=== PATIENT | female | born 1960 | race Caucasian/White ===

== ENCOUNTER → 2016-08-06 | Outpatient (CLI) | payer BC ==
--- NOTE | 2016-08-09 07:34 | MM ---
Reason for exam: screening (asymptomatic). Last mammogram was performed 4 years and 8 months ago. History: Patient is postmenopausal. Took hormonal contraceptives beginning at age 18. Taking estrogen for 1 year beginning at age 50. Taking progesterone for 1 year beginning at age 50. Physical Findings: A clinical breast exam by your physician is recommended on an annual basis and results should be correlated with mammographic findings. MG 3D Screening Mammo W/Cad Bilateral CC and MLO view(s) were taken. Prior study comparison: December 09, 2011, CAD bilateral diagnostic mammogram. December 23, 2006, workup right diagnostic mammogram. December 14, 2006, bilateral screening mammogram w/CAD. The breast tissue is heterogeneously dense. This may lower the sensitivity of mammography. Finding: There are typically benign round, regional calcifications in both breasts. There is no discrete abnormality. Prominent bilateral axillary lymph nodes redemonstrated. ASSESSMENT: Benign, BI-RAD 2 RECOMMENDATION: Routine screening mammogram of both breasts in 1 year.
== END ==
LOC: RADMAMWWP 07:48
PROVIDERS: ATTEND Family Medicine
DX: Z12.31 Encounter for screening mammogram for malignant neoplasm of breast (principal)
CPT/HCPCS: 77052; 77063; G0202

== ENCOUNTER → 2018-03-06 | Outpatient (CLI) | payer OTHER ==
--- NOTE | 2018-03-06 18:38 | BD ---
EXAMINATION TYPE: Axial Bone Density DATE OF EXAM: 03/06/2018 COMPARISON: NONE CLINICAL HISTORY: 57-year-old female postmenopausal symptoms Height: 61.7 IN Weight: 156 LBS FRAX RISK QUESTIONS: History of Fracture in Adulthood: YES RT WRIST RISK FACTORS HISTORY OF: History of Wrist Fracture: YES RT WRIST When: AGE 54 Active: YES Diet low in dairy products/other sources of calcium: YES Postmenopausal woman: AGE 49 Take estrogen and/or progesterone medications: NOT NOW How long: TOOK CONTROL FOR 28 YEARS MEDICATIONS: Thyroid Medications: YES Which medication: Levothyroxine How Lon YEARS Additional Medications: VIT D, LEVOTHYROXINE, AMLODIPINE, METOPROLOL, PRISTIQ, OMEPRAZOLE, ASTHMANEX INHALER, CLARITIN, SINGULAIR, EXAM MEASUREMENTS: Bone mineral densitometry was performed using the [employer]. Bone mineral density as measured about the Lumbar spine is: ----- L1-L4(G/cm2): 0.861 T Score Values are as follows: ----- L2: -3.6 ----- L3: -2.9 ----- L4: -1.6 ----- L1-L4: -2.7 Bone mineral density BASELINE Bone mineral density about the R hip (g/cm2): 0.900 Bone mineral density about the L hip (g/cm2): 0.932 T Score values are as follows: -----R Neck: -1.0 -----L Neck: -0.8 -----R Total: -0.7 -----L Total: -0.2 Bone mineral density BASELINE IMPRESSION: Osteoporosis (T Score less than -2.5). There is increased fracture risk and therapy is usually indicated based on age. Re-Screen 1-2 years. NOTE: T-SCORE=SD OF THE YOUNG ADULT MEAN.
--- NOTE | 2018-03-08 10:55 | MM ---
Reason for exam: screening (asymptomatic). Last mammogram was performed 1 year and 7 months ago. History: Patient is postmenopausal. Took hormonal contraceptives beginning at age 18. Taking estrogen for 1 year beginning at age 50. Taking progesterone for 1 year beginning at age 50. Physical Findings: A clinical breast exam by your physician is recommended on an annual basis and results should be correlated with mammographic findings. MG 3D Screening Mammo W/Cad Bilateral CC and MLO view(s) were taken. Prior study comparison: August 06, 2016, bilateral MG 3d screening mammo w/cad. December 09, 2011, CAD bilateral diagnostic mammogram. The breast tissue is heterogeneously dense. This may lower the sensitivity of mammography. Finding: There are intermediate concern, suspicious round, grouped/clustered calcifications in the 9 o'clock upper outer quadrant, middle position of the left breast 6cm from the nipple. New finding since August 06, 2016 and December 09, 2011. ASSESSMENT: Incomplete: need additional imaging evaluation, BI-RAD 0 RECOMMENDATION: Special view mammogram of the left breast. [facility] will attempt to contact patient to return for supplemental views.
== END | disposition home or self-care (01) ==
LOC: RADMAMWWP 07:33
PROVIDERS: ATTEND Obstetrics & Gynecology
DX: Z12.31 Encounter for screening mammogram for malignant neoplasm of breast (principal); M81.0 Age-related osteoporosis without current pathological fracture; N95.1 Menopausal and female climacteric states
CPT/HCPCS: 77063; 77067; 77080

== ENCOUNTER → 2018-03-27 | Outpatient (CLI) | payer OTHER ==
--- NOTE | 2018-03-27 11:26 | MM ---
Reason for exam: additional evaluation requested from prior study. Last mammogram was performed 1 month ago. History: Patient is postmenopausal. Took hormonal contraceptives beginning at age 18. Took estrogen for 10 years beginning at age 50. Took progesterone for 10 years beginning at age 50. Physical Findings: Nurse did not find any significant physical abnormalities on exam. MG 3D Work Up W/Cad LT CC with magnification, MLO with magnification, and LM view(s) were taken of the left breast. Technologist: Bernice Doll RT (R)(M) Prior study comparison: March 06, 2018, bilateral MG 3d screening mammo w/cad. August 06, 2016, bilateral MG 3d screening mammo w/cad. The breast tissue is heterogeneously dense. This may lower the sensitivity of mammography. There are indeterminate calcifications central upper left breast. These results were verbally communicated with the patient and result sheet given to the patient on 03/27/18. ASSESSMENT: Suspicious, BI-RAD 4 RECOMMENDATION: Stereotactic core biopsy of the left breast. Called Dr. Hinds with mammographic findings and has scheduled an appointment for the patient for 04/07/18 at 12:[address] Phelan. Biopsy scheduled for 04/14/18 at 8 o'clock. PRELIMINARY REPORT CALLED AND FAXED TO DR. PHELAN ON 03/27/18.
== END | disposition home or self-care (01) ==
LOC: RADMAMWWP 06:53
PROVIDERS: ATTEND Obstetrics & Gynecology
DX: R92.8 Other abnormal and inconclusive findings on diagnostic imaging of breast (principal)
CPT/HCPCS: 77061; 77065

== ENCOUNTER → 2018-04-14 | Day surgery (SDC) | payer OTHER ==
[2018-04-14 07:23] VITALS: RESP 16; BMI 28.9
[2018-04-14 09:15] VITALS: BP 144/84; PULSE 75; TEMP 98
--- NOTE | 2018-04-14 19:42 | MM ---
EXAMINATION TYPE: MG stereo VAD BX LT DATE OF EXAM: 04/14/2018 COMPARISON: NONE CLINICAL HISTORY: Abnormal mammogram TECHNIQUE: Stereotactic guided core biopsy of left breast. FINDINGS: The procedure of stereotactic guided core biopsy was explained to the patient. Benefits, a lternatives, and risks were discussed. An informed consent was then obtained. A timeout was performed. The [facility] pathway for biopsy was chosen. Shortness pathway was lateral approach. Radiology perfo rmed the localization. Dr. Mohamud performed the procedure. Multiple core samples were obtained. Sample: Sample was evaluated. Multiple calcifications are within sample. Samples labeled and transfer red to pathology for additional evaluation. Postprocedure mammogram: Post biopsy mammogram shows the clip to appear in satisfactory position rela tive to the targeted area of concern on the preprocedure images. The patient tolerated the procedure well without any immediate complication. Discharge instructions were discussed with the patient. Patient will follow-up with her physician for results. The patient w as kept in the radiology department for short stay after the procedure and then discharged home in st able condition. IMPRESSION: 1. Successful stereotactic core biopsy left breast calcifications. Recommendations: 1. Recommendations are pending pathology results.
== END | disposition home or self-care (01) ==
LOC: RADMAMWWP 06:51
PROVIDERS: ATTEND Surgery
DX: N60.92 Unspecified benign mammary dysplasia of left breast (principal)
CPT/HCPCS: 88305; 88342; 19081; A4648; J2001

== ENCOUNTER → 2018-11-09 | Outpatient (CLI) | payer OTHER ==
--- NOTE | 2018-11-09 08:51 | MM ---
Reason for exam: follow-up at short interval from prior study. Last mammogram was performed 7 months ago. History: Patient is postmenopausal. Benign MG stereo VAD BX LT of the left breast, April 14, 2018. Took hormonal contraceptives beginning at age 18. Took estrogen for 10 years beginning at age 50. Took progesterone for 10 years beginning at age 50. Physical Findings: Nurse did not find any significant physical abnormalities on exam. MG 3D Diag Mammo W/Cad LT CC, MLO, LM, and XCCL view(s) were taken of the left breast. Prior study comparison: March 27, 2018, left breast MG 3d work up w/cad LT. March 06, 2018, bilateral MG 3d screening mammo w/cad. The breast tissue is heterogeneously dense. This may lower the sensitivity of mammography. Benign calcifications in the left breast. Previous mammotome biopsy in the left breast. These results were verbally communicated with the patient and result sheet given to the patient on 11/09/18. ASSESSMENT: Benign, BI-RAD 2 RECOMMENDATION: Return to routine screening mammogram schedule for both breasts. Back on schedule.
== END | disposition home or self-care (01) ==
LOC: RADMAMWWP 06:46
PROVIDERS: ATTEND Obstetrics & Gynecology
DX: R92.8 Other abnormal and inconclusive findings on diagnostic imaging of breast (principal)
CPT/HCPCS: 77061; 77065

== ENCOUNTER → 2019-06-22 | Outpatient (CLI) | payer OTHER ==
--- NOTE | 2019-06-26 08:32 | MM ---
Reason for exam: screening (asymptomatic). Last mammogram was performed 7 months ago. History: Patient is postmenopausal. Benign MG stereo VAD BX LT of the left breast, April 14, 2018. Took hormonal contraceptives beginning at age 18. Took estrogen for 10 years beginning at age 50. Took progesterone for 10 years beginning at age 50. Physical Findings: A clinical breast exam by your physician is recommended on an annual basis and results should be correlated with mammographic findings. MG 3D Screening Mammo W/Cad Bilateral CC and MLO view(s) were taken. XCCL view(s) were taken of the left breast. Prior study comparison: November 09, 2018, left breast MG 3d diag mammo w/cad LT. March 27, 2018, left breast MG 3d work up w/cad LT. The breast tissue is heterogeneously dense. This may lower the sensitivity of mammography. No significant changes when compared with prior studies. ASSESSMENT: Benign, BI-RAD 2 RECOMMENDATION: Routine screening mammogram of both breasts in 1 year.
== END | disposition home or self-care (01) ==
LOC: RADMAMWWP 07:10
PROVIDERS: ATTEND Obstetrics & Gynecology
DX: Z12.31 Encounter for screening mammogram for malignant neoplasm of breast (principal)
CPT/HCPCS: 77063; 77067

== ENCOUNTER → 2020-07-01 | Outpatient (CLI) | payer OTHER | END | disposition home or self-care (01) | LOC: LABPAT 07:34 | PROVIDERS: ATTEND Surgery | DX: U07.1 COVID-19 (principal) | CPT/HCPCS: U0003; C9803 ==

== ENCOUNTER 2020-07-08 12:06 | Day surgery (SDC) | payer OTHER ==
[2020-07-04 09:22] VITALS: BMI 28.5
[~2020-07-08 12:06] MED LIST: DEXAMETHASONE SOD PHOSPHATE 4 MG/ML 1 ML VIAL IV ONE; HEPARIN SODIUM,PORCINE 5,000 UNIT/ML 1 ML VIAL SQ PRN; LACTATED RINGERS 1,000 ML IV SCH; LIDOCAINE 1% (10MG/ML) FOR IV START INTRADERMA PRN; ONDANSETRON 4 MG/2 ML VIAL IVP ONE; SCOPOLAMINE 1.5MG/72HR PATCH TRANSDERM ONE
[2020-07-08] MEDS ORDERED: MIDAZOLAM 2 MG/2 ML VIAL IV ONE (13:03)
[2020-07-08] MEDS ORDERED: GLYCOPYRROLATE 0.2 MG/ML 2 ML VIAL ONE (13:42)
[2020-07-08] MEDS ORDERED: ALBUTEROL HFA INHALER INHALATION ONE (13:42)
[2020-07-08] MEDS ORDERED: METOPROLOL TARTRATE 5 MG/5 ML VIAL IVP ONE (13:42)
[2020-07-08] MEDS ORDERED: ROCURONIUM 10 MG/ML (10 ML VIAL) IV ONE (13:42)
[2020-07-08] MEDS ORDERED: fentaNYL (PF) 50 MCG/ML 2 ML AMP ONE (13:42)
[2020-07-08] MEDS ORDERED: SUCCINYLCHOLINE CHLORIDE 100 MG/5 ML SYR IV ONE (13:42)
[2020-07-08] MEDS ORDERED: PROPOFOL 10 MG/ML 20 ML VIAL IV ONE (13:42)
[2020-07-08] MEDS ORDERED: ROPIVACAINE 5 MG/ML 30 ML VIAL ONE (13:42)
[2020-07-08] MEDS ORDERED: DEXAMETHASONE SOD PHOSPHATE 4 MG/ML 1 ML VIAL ONE (13:42)
[2020-07-08] MEDS ORDERED: NEOSTIGMINE 1 MG/ML 10 ML VIAL ONE (13:42)
[2020-07-08] MEDS ORDERED: KETOROLAC 15 MG/ML 1 ML VIAL ONE (13:42)
[2020-07-08] MEDS ORDERED: MIDAZOLAM 2 MG/2 ML VIAL ONE (13:42)
[2020-07-08] MEDS ORDERED: BUPIVACAINE (PF) 0.25% 30 ML VIAL SQ ONE ×3 (13:50→14:54)
--- NOTE | 2020-07-08 14:46 | P.ANPRN ---
Procedure Note - Anesthesia - Nerve Block Performed Bilateral Rectus Abdominis Single Time Out Performed: Yes Date of Procedure: 07/08/20 Procedure Start Time: 13:02 Procedure Stop Time: 13:07 Location of Patient: PreOp Indication: Acute Post-Operative Pain, Requested by Surgeon Sedation Type: Sedate with meaningful contact maintained Preparation: Sterile Prep Position: Supine Needle Types: Pajunk Needle Gauge: 21 Ultrasound used to visualize needle placement: Yes Ultrasound used to observe medication spread: Yes Blood Aspirated: No Pain Paresthesia on Injection Noted: No Resistance on Injection: Normal Image Stored and Saved: Yes Events: Uneventful and Well Tolerated (ropi .5% 20cc plus dexamethasone 4mg bilaterally)
[2020-07-08] MEDS ORDERED: LACTATED RINGERS 1,000 ML IV ONE ×2 (14:50)
--- NOTE | 2020-07-08 15:06 | P.OP ---
Date of Procedure: 07/08/20 Preoperative Diagnosis: Umbilical hernia Postoperative Diagnosis: Umbilical hernia Procedure(s) Performed: Robotic repair of umbilical hernia, with mesh Anesthesia: KATERYNA Surgeon: Luly Osman Pathology: none sent Condition: stable Disposition: same day Indications for Procedure: 59-year-old female presents today for surgical repair of umbilical hernia. The umbilical hernia has been causing the patient some painful symptoms. She is excellent the risks, benefits and alternatives to the procedure did provide consent prior to attending the operating suite. Operative Findings: Umbilical hernia containing omental and preperitoneal fatty tissue Description of Procedure: The patient was brought to the operating suite and placed in supine position. Gen. anesthesia with endotracheal intubation was performed as per anesthesia team. The right arm was tucked against the body and footboard was applied. Chlorhexidine was used to prep the skin followed by application of sterile drapes. A timeout was performed to verify an additional 8 mm trocar was placed in the left lower abdomen and a 12 mm trocar was placed in the left mid abdomen. The initial 5 mm trocar was upsized to an 8 mm trocar. The da Robby robot was undocked. The 30 robotic camera was used. A robotic progressive and monopolar scissors were inserted through the 8 mm robotic trochars. The hernia defect contained preperitoneal fat and omentum which were reduced using gentle traction and countertraction method along with some cautery. The falciform ligament was divided using monopolar scissors close to the anterior abdominal wall to create a landing zone for the mesh. A Viadeo Echo system circular mesh was rolled and introduced the abdominal cavity via the 12 mm trocar. The hernia defect was closed primarily with running sutures using 0V lock by taking 17 m by Don the fascia on either side of the defect. A Benitez Wright device was inserted through the middle of the hernia defect and the stay suture on the mesh was grasped to elevate the mesh against the anterior abdominal wall. The mesh was circumferentially sutured to the peritoneum of the anterior abdominal wall using 20V lock without any folds or kinks. The robot was then undocked. Laparoscopic 30 camera was inserted. All trocar sites were examined. No evidence of bleeding was noted. The 12 mm trocar site was closed using 2 transverse fascial sutures of 0 Vicryl which were placed using a Benitez Wright device under direct visualization. The pneumoperitoneum was evacuated and the skin incisions were closed using 4-0 Monocryl followed by Dermabond skin glue. The sponge, instrument and needle count were correct 2. Abdominal binder was applied. The patient was excellent and taken to postanesthesia care unit in stable condition.
[2020-07-08 15:26] VITALS: TEMP 97.9
[2020-07-08] MEDS: HYDROmorphone 0.5 MG/0.5 ML SYRINGE IVP PRN ×2 (15:27→15:51)
[2020-07-08 16:09] VITALS: RESP 16
[2020-07-08 17:19] VITALS: BP 161/77; PULSE 77
[2020-07-08] MEDS ORDERED: IBUPROFEN 200 MG TAB PO ONE (17:19)
== END 2020-07-08 17:50 | disposition home or self-care (01) ==
LOC: OR 12:06
PROVIDERS: ATTEND Surgery
DX: K42.9 Umbilical hernia without obstruction or gangrene (principal); J45.909 Unspecified asthma, uncomplicated; F32.9 Major depressive disorder, single episode, unspecified; I10 Essential (primary) hypertension; G43.909 Migraine, unspecified, not intractable, without status migrainosus; E03.9 Hypothyroidism, unspecified; K44.9 Diaphragmatic hernia without obstruction or gangrene; K08.89 Other specified disorders of teeth and supporting structures; K21.9 Gastro-esophageal reflux disease without esophagitis; Z98.51 Tubal ligation status; Z98.41 Cataract extraction status, right eye; Z98.42 Cataract extraction status, left eye; Z79.899 Other long term (current) drug therapy; Z79.890 Hormone replacement therapy; Z79.51 Long term (current) use of inhaled steroids; Z79.82 Long term (current) use of aspirin; Z80.6 Family history of leukemia; Z82.49 Family history of ischemic heart disease and other diseases of the circulatory system; Z83.3 Family history of diabetes mellitus; Z82.0 Family history of epilepsy and other diseases of the nervous system
CPT/HCPCS: 49652; S2900; 64488

== ENCOUNTER → 2020-07-30 | Outpatient (CLI) | payer OTHER ==
--- NOTE | 2020-07-30 13:59 | US ---
EXAMINATION TYPE: US venous doppler duplex LE RT DATE OF EXAM: 07/30/2020 12:18 PM COMPARISON: NONE CLINICAL HISTORY: 59-year-old female M79.89 Rt lower ext swelling, Z48.89 Surgical aftercare. Abdomin al hernia repair 3 weeks ago, pain and edema right leg since surgery SIDE PERFORMED: right TECHNIQUE: The lower extremity deep venous system is examined utilizing real time linear array sonog dirk with graded compression, doppler sonography and color-flow sonography. FINDINGS: VESSELS IMAGED: Common Femoral Vein Deep Femoral Vein Greater Saphenous Vein * Femoral Vein Popliteal Vein Small Saphenous Vein * Proximal Calf Veins (* superficial vessels) Right Leg: no evidence of DVT IMPRESSION: No evidence for DVT within the right lower extremity imaged from the groin to the upper calf.
== END | disposition home or self-care (01) ==
LOC: RADUSWWP 11:54
PROVIDERS: ATTEND Surgery
DX: M79.89 Other specified soft tissue disorders (principal); Z48.89 Encounter for other specified surgical aftercare

== ENCOUNTER → 2020-12-08 | Outpatient (CLI) | payer OTHER ==
--- NOTE | 2020-12-09 08:00 | BD ---
EXAMINATION TYPE: Axial Bone Density DATE OF EXAM: 12/08/2020 COMPARISON: 03/16/2018 CLINICAL HISTORY: Height: 61 IN Weight: 151 LBS FRAX RISK QUESTIONS: History of Fracture in Adulthood: RT WRIST AGE 54 Secondary Osteoporosis: 3. Menopause before 45: AGE 48 RISK FACTORS HISTORY OF: History of Wrist Fracture: RT WRIST AGE 54 Family History of Osteoporosis: YES FATHER Active: YES Postmenopausal woman: AGE 54 Take estrogen and/or progesterone medications: NOT NOW How long: TOOK CONTROL OFF AND ON 23 YEARS. TOOK PREMARIN FOR 7 YEARS MEDICATIONS: Thyroid Medications: YES Which medication: Levothyroxine How Lon YEARS Additional Medications: VIT D, LEVOTHYROXINE, METOPROLOL, AMLODIPINE, SINGULAIR, 81 MG ASPIRIN, ASTHM ANEX INHALER, MYBETRIQUE, (BLADDER SPASMS), PRESTIQ,PROTONIX, FLONASE EXAM MEASUREMENTS: Bone mineral densitometry was performed using the [employer] System. Bone mineral density as measured about the Lumbar spine is: ----- L1-L4(G/cm2): 0.927 T Score Values are as follows: ----- L2: -3.6 ----- L3: -2.1 ----- L4: -0.9 ----- L1-L4: -2.1 Bone mineral density has: Increased 6.9% since study of: 03/06/2018 Bone mineral density about the R hip (g/cm2): 0.853 Bone mineral density about the L hip (g/cm2): 0.895 T Score values are as follows: -----R Neck: -1.3 -----L Neck: -1.0 -----R Total: -0.9 -----L Total: -0.4 Bone mineral density has: Decreased -2.6% since study of: 03/06/2018 IMPRESSION: Osteopenia (T Score between -2.5 and -1). There is slightly increased risk of fracture and the patient may be considered for treatment. Re-Screen 2-5 years. NOTE: T-SCORE=SD OF THE YOUNG ADULT MEAN.
--- NOTE | 2020-12-10 12:33 | MM ---
Reason for exam: screening (asymptomatic). Last mammogram was performed 1 year and 6 months ago. History: Patient is postmenopausal. Benign MG stereo VAD BX LT of the left breast, April 14, 2018. Took hormonal contraceptives beginning at age 18. Took estrogen for 10 years beginning at age 50. Took progesterone for 10 years beginning at age 50. Physical Findings: A clinical breast exam by your physician is recommended on an annual basis and results should be correlated with mammographic findings. MG 3D Screening Mammo W/Cad Bilateral CC and MLO view(s) were taken. Prior study comparison: June 22, 2019, bilateral MG 3d screening mammo w/cad. November 09, 2018, left breast MG 3d diag mammo w/cad LT. The breast tissue is heterogeneously dense. This may lower the sensitivity of mammography. Previous mammotome biopsy in the left breast. No significant changes when compared with prior studies. ASSESSMENT: Benign, BI-RAD 2 RECOMMENDATION: Routine screening mammogram of both breasts in 1 year.
== END | disposition home or self-care (01) ==
LOC: RADBDWWP 15:32
PROVIDERS: ATTEND Obstetrics & Gynecology
DX: Z12.31 Encounter for screening mammogram for malignant neoplasm of breast (principal); M81.0 Age-related osteoporosis without current pathological fracture; M85.89 Other specified disorders of bone density and structure, multiple sites; Z78.0 Asymptomatic menopausal state
CPT/HCPCS: 77063; 77067; 77080

== ENCOUNTER → 2022-04-06 | Outpatient (CLI) | payer OTHER ==
--- NOTE | 2022-04-07 13:54 | MM ---
Reason for Exam: Screening (asymptomatic). Last mammogram was performed 1 year(s) and 4 month(s) ago. Patient History: Menarche at age 12. First Full-Term at age 24. Postmenopausal. Estrogen, starting at age 50 for 10 years. Progesterone, starting at age 50 for 10 years. Hormonal Contraceptives, from age 18 until age 46. 04/14/2018, Benign Core Biopsy on the left side. Risk Values: Edna 5 year model risk: 1.9%. NCI Lifetime model risk: 8.0%. Prior Study Comparison: 11/09/2018 Left Diagnostic Mammogram, [facility]. 06/22/2019 Bilateral Screening Mammogram, [facility]. 12/08/2020 Bilateral Screening Mammogram, [facility]. Tissue Density: The breast tissue is heterogeneously dense. This may lower the sensitivity of mammography. Findings: Analyzed By CAD. No significant changes when compared with prior studies. Stable benign calcifications. No discrete abnormality. Overall Assessment: Benign, BI-RAD 2 Management: Screening Mammogram of both breasts in 1 year. A clinical breast exam by your physician is recommended on an annual basis and results should be correlated with mammographic findings. Electronically signed and approved by: Jose M Read M.D. Radiologis
== END | disposition home or self-care (01) ==
LOC: RADMAMWWP 07:20
PROVIDERS: ATTEND Obstetrics & Gynecology
DX: Z12.31 Encounter for screening mammogram for malignant neoplasm of breast (principal); Z78.0 Asymptomatic menopausal state; Z98.890 Other specified postprocedural states
CPT/HCPCS: 77063; 77067

== ENCOUNTER → 2023-07-30 | Outpatient (CLI) | payer OTHER ==
--- NOTE | 2023-07-31 17:31 | MR ---
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 COMPARISON: None. TECHNIQUE: Multi planar, multi sequence imaging was performed through the orbits/face. Post contrast imaging was performed after the administration of 6.5 cc of Gadavist intravenously. FINDINGS, ORBITS: The globes appear symmetrical. Signal intensity of the globes and optic nerves ar e within normal limits. The intraorbital fat appears preserved. Both lacrimal glands are unremarkab le. The extraocular muscles appear symmetric. After administration of contrast, no abnormal enhanceme nt is seen. FINDINGS, BRAIN: The romero-white junctions, ventricular system, and cisterns do appear unremarkable. Diffusion-weighted imaging shows no evidence of restricted diffusion. Patchy areas of high T2 signa l intensity are seen within the periventricular white matter. Cavernous sinus is within normal limit s. After administration of contrast, no abnormal enhancement is seen within the brain. The bone marrow signal is within normal limits. Paranasal sinuses and mastoid air cells: No significant paranasal sinus disease. IMPRESSION: 1. No evidence of intraorbital mass or significant abnormality. 2. No evidence of intracranial mass nor acute/subacute CVA accident. 3. Minimal Nonspecific white matter changes are identified likely small vessel ischemic disease.
== END | disposition home or self-care (01) ==
LOC: RADMRIMAIN 07:21
PROVIDERS: ATTEND Ophthalmology
DX: G93.89 Other specified disorders of brain (principal); H47.293 Other optic atrophy, bilateral
CPT/HCPCS: 70543; 70553; A9585

== ENCOUNTER → 2023-08-03 | Outpatient (CLI) | payer OTHER ==
--- NOTE | 2023-08-04 13:26 | MM ---
Reason for Exam: Screening (asymptomatic). Last mammogram was performed 1 year(s) and 4 month(s) ago. Patient History: Menarche at age 12. First Full-Term at age 24. Postmenopausal. Estrogen, starting at age 50 for 10 years. Progesterone, starting at age 50 for 10 years. Hormonal Contraceptives, from age 18 until age 46. 04/14/2018, Benign Core Biopsy on the left side. Risk Values: Edna 5 year model risk: 1.9%. NCI Lifetime model risk: 7.7%. Prior Study Comparison: 06/22/2019 Bilateral Screening Mammogram, [facility]. 12/08/2020 Bilateral Screening Mammogram, [facility]. 04/06/2022 Bilateral MG 3D screening mammo w/cad, [facility]. Tissue Density: The breast tissue is heterogeneously dense. This may lower the sensitivity of mammography. Findings: Analyzed By CAD. There is no suspicious group of microcalcifications or new suspicious mass. Overall Assessment: Negative, BI-RAD 1 Management: Screening Mammogram of both breasts in [address] [facility] will attempt to contact patient to return for supplemental views and ultrasound if indicated. Patient should continue monthly self-breast exams. A clinical breast exam by your physician is recommended on an annual basis. This exam should not preclude additional follow-up of suspicious palpable abnormalities. Note on Edna scores and lifetime risk: 1. A Edna score greater than 3% is considered moderate risk. If this is the case, consider specialist referral to assess eligibility for a risk reducing agent. 2. If overall lifetime risk for the development of breast cancer is 20% or higher, the patient may qualify for future screening with alternating mammogram and breast MRI. Electronically signed and approved by: Manoj Carter DO
== END | disposition home or self-care (01) ==
LOC: RADMAMWWP 07:09
PROVIDERS: ATTEND Obstetrics & Gynecology
DX: Z12.31 Encounter for screening mammogram for malignant neoplasm of breast (principal); Z78.0 Asymptomatic menopausal state
CPT/HCPCS: 77063; 77067

== ENCOUNTER → 2024-11-02 | Outpatient (CLI) | payer MEDICARE ==
--- NOTE | 2024-11-02 11:35 | MM ---
Reason for Exam: Screening (asymptomatic). Last mammogram was performed 1 year(s) and 3 month(s) ago. Patient History: Menarche at age 12. First Full-Term at age 24. Postmenopausal. Estrogen, starting at age 50 for 10 years. Progesterone, starting at age 50 for 10 years. Hormonal Contraceptives, from age 18 until age 46. 04/14/2018, Benign Core Biopsy on the left side. Risk Values: Edna 5 year model risk: 2.0%. NCI Lifetime model risk: 7.2%. Prior Study Comparison: 12/08/2020 Bilateral Screening Mammogram, [facility]. 04/06/2022 Bilateral MG 3D screening mammo w/cad, [facility]. 08/03/2023 Bilateral MG 3D screening mammo w/cad, [facility]. Tissue Density: The breasts are heterogeneously dense, which may obscure small masses. Findings: Analyzed By CAD. There is no suspicious group of microcalcifications or new suspicious mass in either breast. Overall Assessment: Benign, BI-RAD 2 Management: Screening Mammogram of both breasts in 1 year. . Patient should continue monthly self-breast exams. A clinical breast exam by your physician is recommended on an annual basis. This exam should not preclude additional follow-up of suspicious palpable abnormalities. Note on Edna scores and lifetime risk: 1. A Edna score greater than 3% is considered moderate risk. If this is the case, consider specialist referral to assess eligibility for a risk reducing agent. 2. If overall lifetime risk for the development of breast cancer is 20% or higher, the patient may qualify for future screening with alternating mammogram and breast MRI. [facility], , 11/02/2024 11:31 AM. Electronically signed and approved by: Jose M Read M.D. Radiologis
--- NOTE | 2024-11-02 14:10 | BD ---
EXAMINATION TYPE: Axial Bone Density DATE OF EXAM: 11/02/2024 CLINICAL HISTORY: 64 years old Female. ICD-10 CODE: M81.0 AGE-RELATED OSTEOPOROSIS W/ , Additional History: Height: 5 ft 1 1/2 in Weight: 143 FRAX RISK QUESTIONS: Alcohol (3 or more units per day): Family History (Parent hip fracture): no Glucocorticoids (More than 3mos): no (Ex: prednisone, prednisolone, methylprednisolone, dexamethasone, and hydrocortisone). History of Fracture in Adulthood: yes Secondary Osteoporosis: 1. Type 1 Diabetes: no 2. Hyperthyroidism: no 3. Menopause before 45: no 4. Malnutrition: no 5. Chronic liver disease: no Rheumatoid Arthritis: no Current Tobacco Use: no RISK FACTORS HISTORY OF: History of Wrist Fracture: left When: 9 years ago Surgery to Spine/Hip(right/left)/Wrist (right/left): none MEDICATIONS: Thyroid Medications: yes Which medication: levothyroxine How Lon years Osteoporosis Medications: none now EXAM MEASUREMENTS: Bone mineral densitometry was performed using the Dr. Z System. Bone mineral density as measured about the Lumbar spine is: ----- L1-L4(G/cm2): 0.886 T Score Values are as follows: ----- L1: -2.9 ----- L2: -4.2 ----- L3: -2.6 ----- L4: -0.6 ----- L1-L4: -2.4 Z Score Values are as follows: ----- L1: -1.3 ----- L2: -2.6 ----- L3: -1.0 ----- L4: 1.0 ----- L1-L4: -0.8 Bone mineral density has: decreased -4.4 % since study of: 2020 Bone mineral density about the R hip (g/cm2): 0.836 Bone mineral density about the L hip (g/cm2): 0.859 T Score values are as follows: -----R Neck: -1.5 -----L Neck: -1.3 -----R Total: -1.6 -----L Total: -0.7 Z Score values are as follows: -----R Neck: 0.1 -----L Neck: 0.2 -----R Total: -0.3 -----L Total: 0.5 Bone mineral density has: decreased -6.6 % since study of: 2020 FRAX%s: The graph provided illustrates a 14.8 % chance for a major osteoporotic fx and a 1.6 % chance for the hips probability for fx in 10 years time. IMPRESSION: Osteopenia (T Score between -2.5 and -1). There is slightly increased risk of fracture and the patient may be considered for treatment. Re-Screen 2-5 years. NOTE: T-SCORE=SD OF THE YOUNG ADULT MEAN. [facility], , 11/02/2024 2:08 PM
== END | disposition home or self-care (01) ==
LOC: RADBDWWP 10:27
PROVIDERS: ATTEND Family Medicine
DX: Z12.31 Encounter for screening mammogram for malignant neoplasm of breast (principal); M81.0 Age-related osteoporosis without current pathological fracture; M85.89 Other specified disorders of bone density and structure, multiple sites; R92.333 Mammographic heterogeneous density, bilateral breasts; Z78.0 Asymptomatic menopausal state; Z92.0 Personal history of contraception
CPT/HCPCS: 77063; 77067; 77080

== ENCOUNTER → 2024-11-30 | Outpatient (CLI) | payer MEDICARE ==
[2024-11-30 11:55] VITALS: BP 150/80; PULSE 82; RESP 16; TEMP 98.9
[2024-11-30] MEDS: DENOSUMAB 60 MG/ML 1 ML SYRINGE SQ NR (11:59)
== END ==
LOC: PROCWHC3 11:36
PROVIDERS: ATTEND Family Medicine
DX: M85.89 Other specified disorders of bone density and structure, multiple sites (principal)
CPT/HCPCS: 96372; J0897

== ENCOUNTER → 2025-01-11 | Outpatient (CLI) | payer MEDICARE ==
[2025-01-11 15:10] LABS: HCT 37.5 % (37.2-46.3); HGB 12.1 g/dL (12.0-15.0); MCH 27.8 pg (27.0-32.0); MCHC 32.3 g/dL (32.0-37.0); MCV 86.2 FL (80.0-97.0); NRBC Per 100 WBC 0 X 10*3/uL (0.00-0.01); Platelet Count 219 X 10*3/uL (140-440); RBC 4.35 X 10*6/uL (4.10-5.20); RDW 15.1 % (11.5-14.5); WBC 5.42 X 10*3/uL (4.50-10.00)
[2025-01-11 15:33] LABS: ALT 16 U/L (8-44); AST 18 U/L (13-35); Albumin 4.2 g/dL (3.8-4.9); Albumin/Globulin Ratio 1.75 Ratio (1.60-3.17); Alkaline Phosphatase 50 U/L (41-126); BUN/Creat Ratio 16.57 Ratio (12.00-20.00); Blood Urea Nitrogen 11.6 mg/dL (9.0-27.0); Calcium 8.8 mg/dL (8.7-10.3); Carbon Dioxide 25.4 mmol/L (21.6-31.8); Chloride 105 mmol/L (96-109); Chol/HDL Ratio 2.28 Ratio; Globulin 2.4 g/dL (1.6-3.3); Glucose 95 mg/dL (70-110); LDL Cholesterol,Calculated 107.4 mg/dL (0.0-131.0); Potassium 3.8 mmol/L (3.5-5.5); Sodium 142 mmol/L (135-145); T4, Free (Free Thyroxine) 1.16 ng/dL (0.80-1.80); Total Bilirubin 0.3 mg/dL (0.3-1.2); Total Protein 6.6 g/dL (6.2-8.2)
== END | disposition home or self-care (01) ==
LOC: LABWHC1 09:44
PROVIDERS: ATTEND Family Medicine
DX: Z00.01 Encounter for general adult medical examination with abnormal findings (principal)
CPT/HCPCS: 36415; 80053; 80061; 84439; 84443; 84481; 85027